=== PATIENT | female | born 1970 | race Caucasian/White ===

== ENCOUNTER 2021-06-01 10:32 | Day surgery (SDC) | payer BC ==
[2021-06-01 11:05] VITALS: TEMP 98.2; BMI 40.4
[2021-06-01] MEDS ORDERED: IRON SUCROSE INJECTION 200 MG in SODIUM CHLORIDE 100 ML IVPB ONE (12:00)
[2021-06-01 13:45] VITALS: BP 140/76; PULSE 80
== END 2021-06-01 13:45 | disposition home or self-care (01) ==
LOC: FINFUSION 10:32 → FM/S 10:37 → FINFUSION 13:45
PROVIDERS: ATTEND Family Medicine
PROC: 3E033GC Introduction of Other Therapeutic Substance into Peripheral Vein, Percutaneous Approach (ICD-10-PCS; principal; 2021-06-01)
DX: D50.9 Iron deficiency anemia, unspecified (principal)
CPT/HCPCS: 96365; J1756

== ENCOUNTER 2022-02-10 10:54 | Day surgery (SDC) | payer BC ==
[2022-02-10] MEDS ORDERED: IRON SUCROSE INJECTION 200 MG in SODIUM CHLORIDE 100 ML IVPB ONE (11:45)
[2022-02-10 12:32] VITALS: BP 132/71; PULSE 66; RESP 17; TEMP 98.1
== END 2022-02-10 12:32 | disposition home or self-care (01) ==
LOC: FINFUSION 10:54 → FM/S 10:56 → FINFUSION 12:32
PROVIDERS: ATTEND Family Medicine
DX: D50.9 Iron deficiency anemia, unspecified (principal)
CPT/HCPCS: 96365; J1756

== ENCOUNTER 2022-02-17 10:32 | Day surgery (SDC) | payer BC ==
[2022-02-17] MEDS ORDERED: IRON SUCROSE INJECTION 200 MG in SODIUM CHLORIDE 100 ML IVPB ONE (11:15)
[2022-02-17 12:43] VITALS: BP 125/70; PULSE 70; RESP 18; TEMP 97.4
== END 2022-02-17 12:00 | disposition home or self-care (01) ==
LOC: FINFUSION 10:32 → FM/S 10:33 → FINFUSION 12:00
PROVIDERS: ATTEND Family Medicine
PROC: 3E033GC Introduction of Other Therapeutic Substance into Peripheral Vein, Percutaneous Approach (ICD-10-PCS; principal; 2022-02-17)
DX: D50.9 Iron deficiency anemia, unspecified (principal)
CPT/HCPCS: 96365; J1756

== ENCOUNTER 2023-05-04 10:59 | Day surgery (SDC) | payer BC ==
[2023-05-04] MEDS ORDERED: IRON SUCROSE INJECTION 200 MG in SODIUM CHLORIDE 100 ML IVPB ONE (11:30)
[2023-05-04 12:20] VITALS: BP 133/65; PULSE 77; RESP 18; TEMP 97.4
== END 2023-05-04 13:28 | disposition home or self-care (01) ==
LOC: FINJECTION 10:59 → FINFUSION 10:59 → FM/S 11:00 → FINJECTION 13:28
PROVIDERS: ATTEND Family Medicine
PROC: 3E033GC Introduction of Other Therapeutic Substance into Peripheral Vein, Percutaneous Approach (ICD-10-PCS; principal; 2023-05-04)
DX: D50.9 Iron deficiency anemia, unspecified (principal)
CPT/HCPCS: 96365; J1756

== ENCOUNTER 2023-05-12 16:07 | Day surgery (SDC) | payer BC ==
[2023-05-12] MEDS: IRON SUCROSE INJECTION 200 MG in SODIUM CHLORIDE 100 ML IVPB ONE (17:44)
[2023-05-12 19:33] VITALS: BP 123/67; PULSE 68; RESP 18; TEMP 98.1
== END 2023-05-12 18:00 | disposition home or self-care (01) ==
LOC: FINJECTION 16:07 → FINFUSION 16:07 → FM/S 16:08 → FINJECTION 18:00
PROVIDERS: ATTEND Family Medicine
PROC: 3E033GC Introduction of Other Therapeutic Substance into Peripheral Vein, Percutaneous Approach (ICD-10-PCS; principal; 2023-05-12)
DX: D50.9 Iron deficiency anemia, unspecified (principal)
CPT/HCPCS: 96365; J1756

== ENCOUNTER 2024-12-16 10:55 | Day surgery (SDC) | payer OTHER, BC ==
[2024-12-16] MEDS: IRON SUCROSE INJECTION 200 MG in SODIUM CHLORIDE 100 ML IVPB ONE (11:35)
[2024-12-16 12:53] VITALS: BP 132/76; PULSE 96; RESP 19
== END 2024-12-16 12:45 | disposition home or self-care (01) ==
LOC: FINFUSION 10:55 → FM/S 10:55 → FINFUSION 12:45
PROVIDERS: ATTEND Family Medicine
PROC: 3E033GC Introduction of Other Therapeutic Substance into Peripheral Vein, Percutaneous Approach (ICD-10-PCS; principal; 2024-12-16)
DX: D50.9 Iron deficiency anemia, unspecified (principal)
CPT/HCPCS: 96365; J1756

== ENCOUNTER 2024-12-23 10:48 | Day surgery (SDC) | payer BC, OTHER ==
[2024-12-23] MEDS: IRON SUCROSE INJECTION 200 MG in SODIUM CHLORIDE 100 ML IVPB ONE (11:39)
[2024-12-23 17:32] VITALS: BP 120/72; PULSE 69; RESP 18; TEMP 98.7
== END 2024-12-23 17:33 | disposition home or self-care (01) ==
LOC: FM/S 10:48 → FINFUSION 10:48
PROVIDERS: ATTEND Family Medicine
PROC: 3E033GC Introduction of Other Therapeutic Substance into Peripheral Vein, Percutaneous Approach (ICD-10-PCS; principal; 2024-12-23)
DX: E61.1 Iron deficiency (principal)
CPT/HCPCS: 96365; J1756

== ENCOUNTER 2024-12-30 10:45 | Day surgery (SDC) | payer BC, OTHER ==
[2024-12-30] MEDS: IRON SUCROSE INJECTION 200 MG in SODIUM CHLORIDE 100 ML IVPB ONE (11:29)
[2024-12-30 13:14] VITALS: BP 112/72; PULSE 74; RESP 16; TEMP 98.3
== END 2024-12-30 12:45 | disposition home or self-care (01) ==
LOC: FINFUSION 10:45 → FM/S 10:46 → FINFUSION 12:45
PROVIDERS: ATTEND Family Medicine
PROC: 3E033GC Introduction of Other Therapeutic Substance into Peripheral Vein, Percutaneous Approach (ICD-10-PCS; principal; 2024-12-30)
DX: E61.1 Iron deficiency (principal)
CPT/HCPCS: 96365; J1756